=== PATIENT | female | born 1970 | race Caucasian/White ===

== ENCOUNTER 2016-08-03 14:10 | Emergency (ER) | payer OTHER ==
[2016-08-03 14:27] VITALS: RESP 20; O2SAT 98
[2016-08-03 15:11] VITALS: BP 113/82; PULSE 88; TEMP 96.8
== END 2016-08-03 15:20 | disposition home or self-care (01) ==
LOC: ED 14:10
DX: S93.401A Sprain of unspecified ligament of right ankle, initial encounter (principal); X50.1XXA Overexertion from prolonged static or awkward postures, initial encounter
CPT/HCPCS: 73610; 99282; E0114

== ENCOUNTER 2016-11-08 21:11 | Emergency (ER) | payer MEDICAID, OTHER ==
[2016-11-08 21:20] VITALS: RESP 18
[2016-11-08 21:59] LABS: CALCIUM 8.2 mg/dl (8.5-10.1); POTASSIUM 3.9 mMol/L (3.5-5.1)
[2016-11-08 22:13] LABS: BASOPHILS % (AUTO) 1 % (0-3); EOSINOPHILS % (AUTO) 2 % (0-9); HEMATOCRIT 41 % (35-47); MEAN CORPUSCULAR HGB CONC 32.8 gm/dl (32.0-36.0); MONOCYTES % (AUTO) 7.8 % (0-12); NEUTROPHILS % (AUTO) 67.5 % (37-80)
[2016-11-08 22:14] LABS: MEAN CORPUSCULAR VOLUME 78 fL (81-99)
[2016-11-08] MEDS ORDERED: IBUPROFEN 600 MG TAB PO ONE (22:29)
[2016-11-08] MEDS ORDERED: IBUPROFEN 600 MG TAB ONE (22:33)
[2016-11-08 22:55] VITALS: BP 128/87; PULSE 85; TEMP 99.1; O2SAT 98
== END 2016-11-08 22:40 | disposition home or self-care (01) | DRG 556 ==
LOC: ED 21:11
DX: M79.605 Pain in left leg (principal); R60.1 Generalized edema; M79.604 Pain in right leg
CPT/HCPCS: 36415; 80048; 83880; 84703; 85025; 85378; 93005; 99282; 99284

== ENCOUNTER 2016-11-30 16:30 | Emergency (ER) | payer MEDICAID, OTHER ==
[2016-11-30 16:56] VITALS: RESP 16; TEMP 98.2
[2016-11-30] MEDS ORDERED: TRAMADOL HYDROCHLORIDE 50 MG TAB PO ONE (18:00)
[2016-11-30] MEDS ORDERED: TRAMADOL HYDROCHLORIDE 50 MG TAB ONE (18:02)
[2016-11-30 18:08] VITALS: BP 102/79; PULSE 90; O2SAT 95
== END 2016-11-30 18:04 | disposition home or self-care (01) | DRG 556 ==
LOC: ED 16:30
DX: M25.561 Pain in right knee (principal)
CPT/HCPCS: 36415; 85378; 99282; 99283

== ENCOUNTER 2016-12-19 15:42 | Outpatient (CLI) | payer OTHER ==
[2016-11-30 17:46] VITALS: O2SAT 96
== END 2016-12-19 15:43 | disposition home or self-care (01) | DRG 563 ==
LOC: CONVCARE 15:42
PROVIDERS: ATTEND Orthopaedic Surgery
DX: S93.401A Sprain of unspecified ligament of right ankle, initial encounter (principal); M25.561 Pain in right knee
CPT/HCPCS: 73564; 73610

== ENCOUNTER 2017-03-30 08:55 | Emergency (ER) | payer OTHER ==
[2017-03-30] MEDS ORDERED: KETOROLAC TROMETHAMINE 30 MG/ML SOL IM ONE (09:58)
[2017-03-30] MEDS ORDERED: KETOROLAC TROMETHAMINE 30 MG/ML SOL ONE (09:59)
[2017-03-30 10:36] VITALS: BP 115/68; PULSE 89; RESP 18; TEMP 96.5; O2SAT 95
== END 2017-03-30 10:30 | disposition home or self-care (01) | DRG 156 ==
LOC: ED 08:55
DX: H92.01 Otalgia, right ear (principal)
CPT/HCPCS: 99282; J1885

== ENCOUNTER 2017-06-02 19:20 | Emergency (ER) | payer OTHER ==
[2017-06-02] MEDS ORDERED: BACITRACIN 500 U/GM OIN TOP ONE ×2 (19:42→19:43)
[2017-06-02 19:52] VITALS: BP 134/83; PULSE 80; RESP 20; TEMP 96.8; O2SAT 97
== END 2017-06-02 20:10 | disposition home or self-care (01) | DRG 605 ==
LOC: ED 19:20
DX: S91.114A Laceration without foreign body of right lesser toe(s) without damage to nail, initial encounter (principal)
CPT/HCPCS: 99282

== ENCOUNTER 2017-09-25 09:47 | Emergency (ER) | payer SELFPAY ==
[2017-09-25 09:47] VITALS: O2SAT 97
[2017-09-25 09:59] VITALS: BP 160/92; PULSE 120; RESP 20; TEMP 97.6
[2017-09-25 10:40] LABS: BASOPHILS % (AUTO) 1 % (0-3); EOSINOPHILS % (AUTO) 1 % (0-9); HEMATOCRIT 43 % (35-47); MEAN CORPUSCULAR HEMOGLOBIN 25.7 pg (27.0-32.0); MEAN CORPUSCULAR HGB CONC 32.3 gm/dl (32.0-36.0); MONOCYTES % (AUTO) 5.2 % (0-12); NEUTROPHILS % (AUTO) 75.8 % (37-80)
[2017-09-25 10:42] LABS: APPEARANCE,URINE Clear; BILIRUBIN,URINE NEGATIVE (NEGATIVE); COLOR,URINE Yellow; GLUCOSE, URINE (UA) NEGATIVE (NEGATIVE); KETONES,URINE NEGATIVE (NEGATIVE); LEUKOCYTE ESTERASE ,URINE 1+ (NEGATIVE); NITRATE,URINE NEGATIVE (NEGATIVE); OCCULT BLOOD,URINE NEGATIVE (NEG-TRACE); PH,URINE 5.5; UROBILINOGEN,URINE 0.2 (0.2-1.0 EU)
[2017-09-25 10:44] LABS: MEAN CORPUSCULAR VOLUME 80 fL (81-99)
[2017-09-25 10:47] LABS: CALCIUM 8.8 mg/dl (8.5-10.1); CARBON DIOXIDE 30.2 mEq/L (21-32); CREATININE 0.74 mg/dl (0.60-1.00); POTASSIUM 3.8 mMol/L (3.5-5.1)
[2017-09-25 10:49] LABS: CRYSTALS NEGATIVE (0-3 AVE/HPF); EPITHELIAL CELLS 0-2 (SQUAMOUS); RBC,URINE 0-1 (0-3AV/HPF)
[2017-09-25 10:50] LABS: BACTERIA 1+ (< 1+)
== END 2017-09-25 11:22 | disposition home or self-care (01) | DRG 392 ==
LOC: ED 09:47
DX: K59.01 Slow transit constipation (principal); N30.00 Acute cystitis without hematuria
CPT/HCPCS: 36415; 80048; 81001; 85025; 87088; 99282; 99284

== ENCOUNTER 2017-09-27 10:56 | Inpatient (IN) | payer SELFPAY ==
[2017-09-27] MEDS ORDERED: CLINDAMYCIN 150 MG/ML 900 MG in SODIUM CHLORIDE 0.9% 100 ML 100 ML IV ONE (13:25)
[2017-09-27] MEDS ORDERED: SODIUM CHLORIDE 0.9% 100 ML 100 ML IV ONE ×3 (13:49→22:43)
[2017-09-27] MEDS ORDERED: CLINDAMYCIN 150 MG/ML SOL ONE (13:49)
[2017-09-27] MEDS: SODIUM CHLORIDE 0.9% 1000ML 1,000 ML IV SCH (14:01)
[2017-09-27] MEDS: POLYETHYLENE GLYCOL 17 GM/1 TBS PDS PO SCH (15:10)
[2017-09-27] MEDS: APAP/HYDROCODONE 325/5 TAB PO PRN (15:10)
[2017-09-27] MEDS ORDERED: GENTAMICIN SULFATE 40 MG/ML SOL ONE ×2 (15:15→22:43)
[2017-09-27] MEDS: GENTAMICIN SULFATE 40 MG/ML 80 MG in SODIUM CHLORIDE 0.9% 100 ML 100 ML IV SCH ×2 (15:29→23:24)
[2017-09-27] MEDS: SODIUM CHLORIDE 0.9% FLUSH 10 ML SOL IV SCH ×2 (17:08→21:55)
[2017-09-28] MEDS: APAP/HYDROCODONE 325/5 TAB PO PRN ×2 (00:04→15:44)
[2017-09-28] MEDS: SODIUM CHLORIDE 0.9% 1000ML 1,000 ML IV SCH (03:47)
[2017-09-28] MEDS: SODIUM CHLORIDE 0.9% FLUSH 10 ML SOL IV SCH ×3 (06:15→21:41)
[2017-09-28] MEDS ORDERED: GENTAMICIN SULFATE 40 MG/ML SOL ONE (06:26)
[2017-09-28] MEDS ORDERED: SODIUM CHLORIDE 0.9% 100 ML 100 ML IV ONE (06:26)
[2017-09-28] MEDS: GENTAMICIN SULFATE 40 MG/ML 80 MG in SODIUM CHLORIDE 0.9% 100 ML 100 ML IV SCH (07:14)
[2017-09-28 08:33] LABS: BASOPHILS % (AUTO) 1 % (0-3); EOSINOPHILS % (AUTO) 3 % (0-9); HEMATOCRIT 38 % (35-47); HEMOGLOBIN 12.4 gm/dl (12.0-15.5); MEAN CORPUSCULAR HEMOGLOBIN 26.4 pg (27.0-32.0); MEAN CORPUSCULAR HGB CONC 32.9 gm/dl (32.0-36.0); MONOCYTES % (AUTO) 8.4 % (0-12); NEUTROPHILS % (AUTO) 66.7 % (37-80)
[2017-09-28 08:37] LABS: MEAN CORPUSCULAR VOLUME 80 fL (81-99)
[2017-09-28 08:39] LABS: CALCIUM 7.8 mg/dl (8.5-10.1); CARBON DIOXIDE 26.2 mEq/L (21-32); CREATININE 0.66 mg/dl (0.60-1.00); CRP INFLAMMATORY 2.92 mg/dl (0.00-0.33); POTASSIUM 3.9 mMol/L (3.5-5.1)
[2017-09-28] MEDS: POLYETHYLENE GLYCOL 17 GM/1 TBS PDS PO SCH (08:55)
[2017-09-28] MEDS: CLINDAMYCIN HYDROCHLORIDE 150 MG CAP PO SCH ×4 (12:58→23:47)
[2017-09-28] MEDS: DOXYCYCLINE 100 MG TAB PO SCH (21:30)
[2017-09-28] MEDS ORDERED: BISACODYL 10 MG SUP PR PRN (22:23)
[2017-09-28] MEDS ORDERED: MAGNESIUM HYDROXIDE 30 ML SUS PO PRN (22:23)
[2017-09-29] MEDS ORDERED: HYDROCORTISONE 1% CREAM 1 APPL CRE TOP PRN (00:48)
[2017-09-29] MEDS ORDERED: DIPHENHYDRAMINE 25 MG CAP PO PRN (00:55)
[2017-09-29] MEDS ORDERED: DIPHENHYDRAMINE 25 MG CAP PO SCH (01:00)
[2017-09-29] MEDS: CLINDAMYCIN HYDROCHLORIDE 150 MG CAP PO SCH (04:56)
[2017-09-29] MEDS: SODIUM CHLORIDE 0.9% FLUSH 10 ML SOL IV SCH (05:19)
[2017-09-29 07:36] LABS: HEMATOCRIT 40 % (35-47); HEMOGLOBIN 13.4 gm/dl (12.0-15.5); MEAN CORPUSCULAR HEMOGLOBIN 26.8 pg (27.0-32.0); MEAN CORPUSCULAR HGB CONC 33.4 gm/dl (32.0-36.0)
[2017-09-29 07:38] LABS: ALBUMIN 3.2 gm/dl (3.4-5.0); BILIRUBIN,TOTAL 0.5 mg/dl (0.2-1.0); CALCIUM 8.3 mg/dl (8.5-10.1); CARBON DIOXIDE 30.8 mEq/L (21-32); CREATININE 0.73 mg/dl (0.60-1.00); CRP INFLAMMATORY 3.34 mg/dl (0.00-0.33); POTASSIUM 4.2 mMol/L (3.5-5.1); TOTAL PROTEIN 7.1 gm/dl (6.4-8.2)
[2017-09-29 07:41] LABS: MEAN CORPUSCULAR VOLUME 80 fL (81-99)
[2017-09-29 07:54] LABS: BAND NEUTROPHILS % (MANUAL) 0 %; BASOPHILS % (MANUAL) 0 % (0-3); EOSINOPHILS % (MANUAL) 4 % (0-9); LYMPHOCYTES % (MANUAL) 28 % (10-50); MONOCYTES % (MANUAL) 7 % (0-12); NEUTROPHILS % (MANUAL) 61 % (37-80); NORMAL RBCS PRESENT
[2017-09-29 08:00] VITALS: BP 109/71; PULSE 80; RESP 16; TEMP 98.1; O2SAT 98
[2017-09-29] MEDS: DOXYCYCLINE 100 MG TAB PO SCH (09:10)
[2017-09-29] MEDS: POLYETHYLENE GLYCOL 17 GM/1 TBS PDS PO SCH (09:10)
== END 2017-09-29 10:05 | disposition home or self-care (01) | DRG 759 ==
LOC: RAD 10:56 → ACUTE CARE 12:59
PROVIDERS: ADMIT Family Medicine; ATTEND Family Medicine
DX: N70.91 Salpingitis, unspecified (principal)
CPT/HCPCS: 36415; 74177; 80048; 80053; 85007; 85025; 85027; 99070; J1580; J3490; Q9967; A9270-GY

== ENCOUNTER 2018-08-01 06:34 | Emergency (ER) | payer OTHER ==
[2018-08-01] MEDS ORDERED: ONDANSETRON HCL 4 MG/2 ML SOL IV ONE (07:00)
[2018-08-01] MEDS ORDERED: SODIUM CHLORIDE 0.9% 1000ML 1,000 ML IV ONE (07:00)
[2018-08-01] MEDS ORDERED: ONDANSETRON HCL 4 MG/2 ML SOL ONE (07:03)
[2018-08-01] MEDS ORDERED: SODIUM CHLORIDE 0.9% FLUSH 10 ML SOL IV PRN (07:30)
[2018-08-01 07:59] VITALS: RESP 16
[2018-08-01 08:04] VITALS: TEMP 97.6
[2018-08-01 09:00] VITALS: BP 109/75; PULSE 83; O2SAT 97
== END 2018-08-01 08:53 | disposition home or self-care (01) | DRG 392 ==
LOC: ED 06:34
DX: K52.9 Noninfective gastroenteritis and colitis, unspecified (principal)
CPT/HCPCS: 96365; 96374; 99283; 99284; J2405